=== PATIENT | male | born 1995 | race Caucasian/White ===

== ENCOUNTER 2016-12-19 04:15 | Emergency (ER) | payer BC, OTHER ==
--- NOTE | 2016-12-19 04:27 | EDPHY ---
H & P Time Seen by Provider: 12/19/16 04:24 HPI/ROS: Chief Complaint: Pain with inspiration, shortness of breath HPI: 21-year-old male with a history of asthma and attention deficit hyperactivity disorder is presenting complaining onset of pain with deep breaths and some shortness of breath since last evening have about 7 o'clock. Denies any recent injuries or falls. No recent travel. No leg pain or swelling. No cough. Does have a history of asthma was not had any recent exacerbations. No falls or trauma. No nausea or vomiting. Pain is described as a tightness on the front of his chest pain takes a deep breath any feels like he can't take full breaths. He has no pain at rest. It is not exertional. ROS: 10 point Review of Systems is negative except as noted in the HPI. PMH: Asthma, attention deficit hyperactivity disorder Social History: Positive for smoking, occasional alcohol, occasional marijuana Family History: non-contributory Physical Exam: Gen: Awake, Alert, No Distress, initially tachycardic HEENT: Nose: no rhinorrhea Eyes: PERRLA, EOMI Mouth: Moist mucosa Neck: Supple, no JVD Chest: nontender, lungs clear to auscultation Heart: S1, S2 normal, no murmur Abd: Soft, non-tender, no guarding Back: no CVA tenderness, no midline tenderness Ext: no edema, non-tender Skin: no rash Neuro: CN II-XII intact, Sensation grossly intact, Strength 5/5 in bilateral upper and lower extremities - Personal History Tetanus Vaccine Date: < 10 years - Medical/Surgical History Hx Asthma: Yes Hx Chronic Respiratory Disease: No Hx Diabetes: No Hx Cardiac Disease: No Hx Renal Disease: No Hx Cirrhosis: No Hx Alcoholism: No Hx HIV/AIDS: No Hx Splenectomy or Spleen Trauma: No Other PMH: right knee surgery x2, adenoids removed, asthma - Social History Smoking Status: Heavy smoker Constitutional: Initial Vital Signs Temperature (C) 36.6 C 12/19/16 04:20 Heart Rate 112 H 12/19/16 04:20 Respiratory Rate 16 12/19/16 04:20 Blood Pressure 137/117 H 12/19/16 04:20 O2 Sat (%) 95 12/19/16 04:20 O2 Delivery Mode Room Air Allergies/Adverse Reactions: No Known Allergies Allergy (Unverified 12/19/16 04:26) Home Medications: Medication Instructions Recorded oxyCODONE/APAP [Percocet 1 tab PO Q6 #19 tab 05/25/15325] Medical Decision Making - Diagnostics Imaging: Chest x-ray: Independently viewed by me. No acute findings. ED Course/Re-evaluation: 21-year-old male with pleuritic central chest pain. Initially tachycardic. Hypoxemia. Given the pleuritic nature of his pain is noted tachycardia will check a D-dimer. Does not have any risk factors for PE. Will also check a chest x-ray and basic blood work. Symptoms do not sound cardiac at all. Not exertional. He has no risk factors for coronary disease. Chest x-ray is normal. Does have a mild leukocytosis but no left shift consistent with a viral process. D-dimer is normal. No pneumothorax or infiltrate on his chest x-ray. Will discharge with follow up with primary care physician. I have instructed him to take ibuprofen. He will continue to use his asthma medications. I have also counseled him to stop smoking. - Data Points Laboratory Results: Laboratory Results 12/19/16 04:33 12/19/16 04:33 12/19/16 12/19/16 12/19/16 04:33 04:33 04:33 WBC 15.70 10^3/uL H 10^3/uL (3.80-9.50) RBC 5.64 10^6/uL 10^6/uL (4.40-6.38) Hgb 16.7 g/dL g/dL (13.7-17.5) Hct 48.8 % % (40.0-51.0) MCV 86.5 fL fL (81.5-99.8) MCH 29.6 pg pg (27.9-34.1) MCHC 34.2 g/dL g/dL (32.4-36.7) RDW 12.6 % % (11.5-15.2) Plt Count 277 10^3/uL 10^3/uL (150-400) MPV 9.8 fL fL (8.7-11.7) Neut % (Auto) 73.1 % % (39.3-74.2) Lymph % (Auto) 14.5 % L % (15.0-45.0) [place] % (Auto) 8.7 % % (4.5-13.0) Eos % (Auto) 2.3 % % (0.6-7.6) Baso % (Auto) 0.6 % % (0.3-1.7) Nucleat RBC Rel Count 0.0 % % (0.0-0.2) Absolute Neuts (auto) 11.47 10^3/uL H 10^3/uL (1.70-6.50) Absolute Lymphs (auto) 2.28 10^3/uL 10^3/uL (1.00-3.00) Absolute Monos (auto) 1.37 10^3/uL H 10^3/uL (0.30-0.80) Absolute Eos (auto) 0.36 10^3/uL 10^3/uL (0.03-0.40) Absolute Basos (auto) 0.09 10^3/uL 10^3/uL (0.02-0.10) Absolute Nucleated RBC 0.00 10^3/uL 10^3/uL (0-0.01) Immature Gran % 0.8 % % (0.0-1.1) Immature Gran # 0.13 10^3/uL H 10^3/uL (0.00-0.10) D-Dimer < 0.27 ug/mLFEU ug/mLFEU (0.00-0.50) Sodium 142 mEq/L mEq/L (134-144) Potassium 4.5 mEq/L mEq/L (3.5-5.2) Chloride 105 mEq/L mEq/L (97-110) Carbon Dioxide 22 mEq/l mEq/l (22-31) Anion Gap 15 mEq/L mEq/L (8-16) BUN 16 mg/dL mg/dL (7-23) Creatinine 1.1 mg/dL mg/dL (0.7-1.3) Estimated GFR > 60 Glucose 94 mg/dL mg/dL (70-100) Calcium 9.7 mg/dL mg/dL (8.5-10.4) Departure - Departure Disposition: Home, Routine, Self-Care Clinical Impression: Atypical chest pain Condition: Good Instructions: Chest Pain (ED) Additional Instructions: You may take ibuprofen and acetaminophen for fevers, chills, aches, or pains. Continue using your asthma medications as prescribed. Seek medical help to quit smoking. Follow up with primary care physician in 3-4 days if symptoms are not improving. Referrals: EVELYNE CLARKE [Primary Care Provider] - As per Instructions
[2016-12-19 04:28] VITALS: RESP 16; TEMP 97.9
[2016-12-19 04:40] LABS: % IMMATURE GRANULYOCYTES 0.8 % (0.0-1.1); ABSOLUTE IMMATURE GRANULOCYTES 0.13 10^3/uL (0.00-0.10); ADD DIFF? NO; ADD MORPH? NO; ADD SCAN? NO; ATYPICAL LYMPHOCYTE FLAG 0 (0-99); FRAGMENT RBC FLAG 0 (0-99); HEMATOCRIT 48.8 % (40.0-51.0); HEMOGLOBIN 16.7 g/dL (13.7-17.5); LEFT SHIFT FLG 0 (0-99); LIPEMIA HEMOLYSIS FLAG 90 (0-99); MEAN CELL HEMOGLOBIN 29.6 pg (27.9-34.1); MEAN CELL HEMOGLOBIN CONCENTR. 34.2 g/dL (32.4-36.7); MEAN CELL VOLUME 86.5 fL (81.5-99.8); MEAN PLATELET VOLUME 9.8 fL (8.7-11.7); PLATELET CLUMPS FLAG 0 (0-99); PLATELET COUNT 277 10^3/uL (150-400); RED BLOOD CELL COUNT 5.64 10^6/uL (4.40-6.38); RED CELL DISTRIBUTION WIDTH 12.6 % (11.5-15.2)
[2016-12-19 04:55] LABS: ANION GAP 15 mEq/L (8-16); CALCIUM 9.7 mg/dL (8.5-10.4); CARBON DIOXIDE 22 mEq/l (22-31); CHLORIDE 105 mEq/L (97-110); CREATININE 1.1 mg/dL (0.7-1.3); GLOMERULAR FILTRATION RATE > 60; GLUCOSE 94 mg/dL (70-100); POTASSIUM 4.5 mEq/L (3.5-5.2); SODIUM 142 mEq/L (134-144)
[2016-12-19] MEDS ORDERED: IBUPROFEN 600 MG TAB PO ONE (05:00)
[2016-12-19 05:19] VITALS: BP 126/80; PULSE 96; O2SAT 98
== END 2016-12-19 05:23 | disposition home or self-care (01) ==
DX: R07.89 Other chest pain (principal); J45.909 Unspecified asthma, uncomplicated; F17.200 Nicotine dependence, unspecified, uncomplicated

== ENCOUNTER 2017-03-14 15:35 | Emergency (ER) | payer OTHER ==
[2017-03-14 15:42] VITALS: BP 123/95; PULSE 93; RESP 18; TEMP 97.5; O2SAT 94
--- NOTE | 2017-03-14 16:12 | EDPHY ---
H & P Time Seen by Provider: 03/14/17 15:49 HPI/ROS: CHIEF COMPLAINT: Atraumatic right knee pain x1 week HISTORY OF PRESENT ILLNESS: 21-year-old male with a remote history of right patellar tendon repair 7 years ago, works at [email or web address] on his feet, complaining of 1 week of waxing and waning right anterior knee pain. Pain is worse after being on his feet. Pain is better after he elevates and place cold packs on the area. No trauma. No instability. No fever or chills. No flu- like symptoms. No urethritis or urinary complaints. No history of STD. PHYSICAL EXAM (Prior to examination, patient consented to physical exam, hands were washed and my usual and customary physical exam procedures followed) 1) GENERAL: Well-developed, well-nourished, alert and oriented. Appears to be in no acute distress. 2) HEAD: Normocephalic 3) HEENT: Pupils equal, round, reactive to light bilaterally. 4) LUNGS: Breathing comfortably. 5) MUSCULOSKELETAL: Exam of the right knee shows prepatellar edema with tenderness to palpation of the patella and anterior aspect of the knee. . Compartments are soft. Limited range of motion secondary to pain. Knees in full extension with limited range of motion. 6) SKIN: normal coloration. In no erythema. No induration. 7) VASCULAR: DP,PT pulses and cap refill present and brisk distally DIFFERENTIAL DIAGNOSIS: in no particular order including but not limited to fracture, sprain, compartment syndrome, septic arthritis, DVT Procedure: Crutches indications for crutch use discussed with patient. Patient fitted for crutches by ER staff. Observed ambulating with crutches. I think the patient has the capacity to safely use crutches. Usual and customary crutch walking precautions provided Procedure: Splint A knee immobilizer splint was applied by ER product development technician. After application of the splint I returned and re-examined the patient. The splint was adequately immobilizing the joint and distal to the splint the patient's circulation and sensation were intact. Patient shows no signs of compartment syndrome. Was given orthopedic precautions. MEDICAL DECISION MAKING Serial evaluations performed on patient. I recommended diagnostic arthrocentesis. I was unable to aspirate any fluid for diagnostic arthrocentesis. I discussed this case with secondary Supervising physician Dr. Neil Jara. I think that septic arthritis is less than likely in this patient. I discussed the limitations of x-ray in diagnosis of knee pain and injury. At this time I do not think that emergent MRI is currently indicated. However, I have recommended follow-up with Orthopedic surgery and provided this referral information. Informed the patient that outpatient MRI may be indicated. At 4:45 p.m. the patient requested I speak with his father. The patient provided written consent and release of medical information to speak with father. Smoking Status: Heavy smoker Constitutional: Initial Vital Signs Temperature (C) 36.4 C 03/14/17 15:39 Heart Rate 93 03/14/17 15:39 Respiratory Rate 18 03/14/17 15:39 Blood Pressure 123/95 H 03/14/17 15:39 O2 Sat (%) 94 03/14/17 15:39 O2 Delivery Mode Room Air Allergies/Adverse Reactions: No Known Allergies Allergy (Verified 03/14/17 15:36) Home Medications: Medication Instructions Recorded Ketorolac Tromethamine [Toradol] 10 mg PO Q6H #16 tab 03/14/17 oxyCODONE/APAP 5/325 [Percocet 1 tab PO Q6 #10 tab 03/14/17 5/325] MDM/Departure - MDM Imaging Results: Imaging Impressions Knee X-Ray 03/14/17 15:50 Impression: Soft tissue swelling anterior to the patella and patellar tendon which could represent contusion or bursitis or inflammatory change. No acute osseous abnormality. Images reviewed by myself Procedures: Procedure: Arthrocentesis. Indication: Evaluation for the possibility of septic joint. Risks, benefits, alternatives of the procedure were discussed with the patient and consent obtained. The patient was prepped and draped in the usual sterile fashion over the right knee joint. Local anesthesia was provided with 1% lidocaine. The joint space was entered with a 18 gauge needle I was unable to aspirate any fluid . There were no complications.Patient tolerated procedure well The procedure was performed by myself. Medications Given: Discontinued Medications Oxycodone/Acetaminophen (Percocet 5/325) 1 tab PO EDNOW ONE Stop: 03/14/17 16:18 Last Admin: 03/14/17 16:21 Dose: 1 tab - Depart Disposition: Home, Routine, Self-Care Clinical Impression: Right knee pain Qualifiers: Chronicity: acute Qualified Code(s): M25.561 - Pain in right knee Condition: Good Instructions: Knee Pain (ED) Additional Instructions: Return to the ER immediately if you experience discoloration, have worsening pain, numbness, tingling, or any other symptoms that concern you. If you received x-rays in the emergency department today, be advised, that ligamentous , tendon, muscular, and other non-bony injury cannot be fully ruled out. Try to keep your affected extremity elevated above the level of your chest, and keep cold packs on the affected area, for the next 48 hours. Stand Alone Forms: Work Excuse Prescriptions: Ketorolac Tromethamine [Toradol] 10 mg PO Q6H #16 tab oxyCODONE/APAP 5/325 [Percocet 5/325] 1 tab PO Q6 #10 tab Referrals: Jenelle De La Cruz MD [Medical Doctor] - 2-3 days, call for appt.
[2017-03-14] MEDS ORDERED: OXYCODONE/APAP 5/325 TAB PO ONE (16:17)
== END 2017-03-14 16:45 | disposition home or self-care (01) ==
PROC: 0S9C3ZZ Drainage of Right Knee Joint, Percutaneous Approach (ICD-10-PCS; principal; 2017-03-14)
DX: M25.561 Pain in right knee (principal); F17.200 Nicotine dependence, unspecified, uncomplicated
CPT/HCPCS: L1830

== ENCOUNTER → 2017-04-02 | Outpatient (CLI) | payer OTHER | LOC: FIMAGING 18:49 | PROVIDERS: ATTEND Orthopaedic Surgery ==